=== PATIENT | male | born 1935 | race Caucasian/White ===

== ENCOUNTER 2021-04-25 18:50 | Emergency (ER) | payer BC, SELFPAY ==
[2021-04-25 19:33] VITALS: BP 194/114; PULSE 91; RESP 18; TEMP 36.9; O2SAT 93; BMI 34.4
--- NOTE | 2021-04-25 22:17 | CTR_ITS ---
PROCEDURE INFORMATION: Exam: CT Abdomen And Pelvis Without Contrast Exam date and time: 04/25/2021 10:17 PM Age: 85 years old Clinical indication: Abdominal pain; Patient HX: C/O rectal pain and bleeding w constipation and urinary difficulties; Additional info: Constipation x 1 week, difficulty urinating TECHNIQUE: Imaging protocol: Computed tomography of the abdomen and pelvis without contrast. Radiation optimization: All CT scans at this facility use at least one of these dose optimization techniques: automated exposure control; mA and/or kV adjustment per patient size (includes targeted exams where dose is matched to clinical indication); or iterative reconstruction. COMPARISON: No relevant prior studies available. RADIATION DOSE METRICS: Total DLP (mGy-cm): 1857.51 FINDINGS: Liver: Normal. No mass. Gallbladder and bile ducts: Normal. No calcified stones. No ductal dilation. Pancreas: Normal. No ductal dilation. Spleen: Normal. No splenomegaly. Adrenal glands: Normal. No mass. Kidneys and ureters: Strandy opacities are seen in the perinephric fascia bilaterally most probably representing chronic scarring. There are multiple small bilateral renal cysts present. The largest simple appearing cysts cysts seen on the left measures 1.7 cm. There are multiple I so dense and mildly hyperdense cystic lesions seen within the left kidney, the largest of these measures approximately 12 mm. On the right, there are multiple simple appearing cysts present as well, the largest seen medially measuring 1.9 cm. Again, there are small isodense and mildly hyperdense cystic masses present, the largest measuring approximately 11 mm in diameter. Stomach and bowel: Diverticula are present on the descending and sigmoid colon. There are no inflammatory changes seen to suggest diverticulitis. Appendix: The appendix is visualized and is normal in configuration. Intraperitoneal space: Unremarkable. No free air. No significant fluid collection. Vasculature: Calcifications are seen within the coronary arteries. Calcifications are present within the thoracic and abdominal aorta, iliac arteries and femoral arteries bilaterally and within branches of the celiac trunk. Lymph nodes: There are multiple mediastinal and hilar calcified lymph nodes seen. Urinary bladder: Unremarkable as visualized. Reproductive: Unremarkable as visualized. Bones/joints: There is a diffuse loss of disc height seen within the thoracolumbar spine with vacuum disc phenomenon seen L2-S1. Soft tissues: See Kidneys and ureters finding. Other findings: There are tiny partially calcified nodularities present within the hemithoraces bilaterally compatible with granulomas. CT/CT abdomen pelvis wo con [id number] IMPRESSION: 1. Multiple bilateral benign renal cysts. Several benign hemorrhagic cysts are seen bilaterally. The largest cyst on the left measures 1.7 cm, the largest cyst on the right measures 1.9 cm. No further workup is needed. 2. Diverticulosis of the descending and sigmoid colon 3. Evidence of prior granulomatous exposure with scattered tiny calcified pulmonary granulomas and calcified mediastinal and hilar lymph nodes. COMMENTS: Consistent with the [employer]'s Incidental Findings Committee white paper (J Am Gunnar Radiol 2018): Any incidental renal lesion less than 1 cm or classified as too small to characterize, or any incidental cystic renal lesion characterized as simple-appearing, is likely benign. No follow-up imaging is recommended for these lesions per consensus recommendations based on imaging criteria. Radiation Dose CTDIVOL = (mGy): DLP = 1857.51 (mGy-cm)
[2021-04-25 22:40] VITALS: BP 142/97; PULSE 80; RESP 16; O2SAT 96
[2021-04-25 22:48] LABS: Basophils # 0.1 10^3/uL (0.0-0.1); Basophils % 0.9 %; Eosinophils # 0.3 10^3/uL (0.0-0.8); Hematocrit 47.7 % (42.0-52.0); Hemoglobin 14.5 g/dL (11.7-16.6); Lymphocytes # 1.7 10^3/uL (0.8-4.8); Lymphocytes % 13.3 %; Mean Corpuscular HGB Conc 30.4 g/dL (30.0-36.0); Mean Corpuscular Hemoglobin 29.8 pg (28.0-34.0); Mean Corpuscular Volume 97.9 fL (80-94); Mean Platelet Volume 11.5 fL (7.4-10.4); Monocytes # 1.9 10^3/uL (0.2-0.9); Monocytes % 14.8 %; Neutrophils # 8.73 10^3/uL (1.8-7.7); Neutrophils % 68.1 %; Nucleated Red Blood Cells % 0 %; Platelet Count 263 10^3/cmm (130-400); Red Blood Count 4.87 10^6/uL (4.1-5.3); Red Cell Distribution Width 13.5 % (12.1-15.1); White Blood Count 12.8 10^3/uL (4.0-10.0)
[2021-04-25 23:19] LABS: Add Urine Microscopic? YES; Bilirubin Urine Neg (Negative); Blood Urine 3+ (Negative); Glucose Urine UA 1+ (Normal); Ketones Urine Negative (Negative); Leukocyte Esterase Urine 2+ (Negative); Nitrate Urine Negative (Negative); Protein Urine 1+ (Negative); Specific Gravity, Urine 1.025 (1.005-1.030); Urine Appearance Clear (CLEAR); Urine Color Yellow (Yellow); Urobilinogen Urine 1 mg/dL (Negative); pH Urine 5 (5-7)
[2021-04-25 23:21] LABS: Alanine Aminotransferase 10 U/L (0-41); Albumin Level 3.4 g/dL (3.5-5.2); Alkaline Phosphatase 57 IU/L (40-130); Anion Gap 14.2 (5-19); Aspartate Amino Transferase 16 U/L (0-40); Blood Urea Nitrogen 16 mg/dL (8-23); C Reactive Protein 50.5 mg/L (0.0-4.9); Calcium 9.5 mg/dL (8.5-10.5); Carbon Dioxide 25 mmol/L (22-29); Chloride 104 mmol/L (98-107); Globulin 2.4 g/dL (1.3-4.6); Glucose 155 mg/dL (65-115); Osmolality Calculated 292 mOsm/kg (285-295); Potassium 4.2 mmol/L (3.5-5.1); Sodium 139 mmol/L (136-145); Total Bilirubin 0.2 mg/dL (0.15-1.2); Total Protein 5.8 g/dL (6.6-8.7)
[2021-04-25 23:25] LABS: Add Urine Culture? Yes; Bacteria Urine 1+ /hpf; Hyaline Casts Urine 0-4 /lpf; Mucus Urine 1+ /hpf; WBC Urine 15-25 /hpf (0-5)
--- NOTE | 2021-04-26 00:11 | ED_ITS ---
HPI - General Adult General: Chief complaint: General Medical Stated complaint: Hemmroids Time Seen by Provider: 04/25/21 21:38 Source: patient and family () Mode of arrival: ambulatory Limitations: no limitations History of Present Illness: HPI narrative: This pleasant 85-year-old gentleman presents to the emergency department because he thinks he has trouble with his hemorrhoids. He states that he normally takes MiraLAX every day so he can have regular bowel movements but has not had a proper bowel movement in the 1 week. He was able to pass tiny bowel movement earlier today. But his last normal was 1 week ago. He also has been having difficulty urinating and only urinates about 2 teaspoonfuls every time he urinates. He denies any fever or nausea. He denies abdominal distention. He is here to be evaluated and to see what needs to be done. Onset (ago): week(s) (1) Severity: moderate Associated symptoms: Deny chest pain, confusion, cough, diaphoresis, decreased appetite, dyspnea, fevers/chills, headache(s), malaise, nausea, rash, palpitatio ns, seizures, short of breath, syncope, vomiting or weakness Treatments prior to arrival: none Review of Systems General: Reports: 10 or more systems reviewed and unremarkable except in HPI and below Const: Denies: malaise or diaphoresis Card: Denies: chest pain, palpitations or syncope Resp: Denies: dyspnea GI: Denies: nausea or vomiting Skin/Breast: Denies: rash Neuro: Denies: headache(s) or confusion Physical Exam Const: COMMON NORMALS: no acute distress, average body habitus, patient oriented x3, no limitations, healthy appearing, alert and well nourished Neck/C-Spine: COMMON NORMALS: no JVD Resp: COMMON NORMALS: normal respiratory effort, No retractions, No use of accessory muscles, clear to auscultation bilaterally and percussion normal AUSCULTATION: clear to auscultation bilaterally PERCUSSION: percussion normal Cardio: COMMON NORMALS: no JVD, regular rate, regular rhythm, S1 normal heart sound present, S2 normal heart sound present, No gallops present (Cardio), No clicks present (Cardio), No murmurs present (Cardio), No rub (Cardio) and Peripheral pulses 2+ throughout RATE: regular rate RHYTHM: regular rhythm HEART SOUNDS: S1 normal heart sound present and S2 normal heart sound present PERIPHERAL PULSES: Peripheral pulses 2+ throughout GI: COMMON NORMALS: Normal to inspection, nondistended, normoactive bowel sounds present, Soft to palpation, non-tender, No hepatosplenomegaly present, no masses and no bruits AUSCULTATION: Yes normoactive bowel sounds PALPATION: Yes Soft to palpation and Yes No hepatosplenomegaly present RECTAL EXAM: Yes normal sphincter tone, Yes prostate abnormal enlarged; nontender, No hem orrhoids, No Rectal prolapse, No Lesions present (GI), No fecal impaction, No Anal fissure(s) present and Yes other (liquid stool smeared his anus and my gloved finger) Extremity: COMMON NORMALS: normal to inspection, full ROM, capillary refill normal, no calf tenderness and no pedal edema Neuro: COMMON NORMALS: patient oriented x3 SENSORIUM/ORIENTATION: Yes alert Course Reevaluation(s): Reevaluation #1: Discussed his lab and imaging findings with him. Explained no acute findings on CT scan and no obvious constipation or bowel obstruction. He drained about 400 mL of urine into his urinary bag after a Edmondson catheter was placed in. He has some urinary retention and this may be responsible for the sensations that he was feeling. Since nothing acute was found we will discharge him but will leave the Edmondson catheter in place and he is to follow-up with a urologist for further evaluation and management. Patient voiced understanding and is in agreement with the plan Time: 00:12 Vital Signs: Vital signs: Vital Signs Temperature 98.5 F 04/26/21 00:26 Pulse Rate 75 04/26/21 00:26 Respiratory Rate 16 04/26/21 00:26 Blood Pressure 187/82 04/26/21 00:26 Pulse Oximetry 95 04/26/21 00:26 MDM - General Adult MDM Narrative: Medical decision making narrative: 85-year-old male who presents to the emergency department with difficulty urinating and constipation. Evaluation in the ED shows that he is in urinary retention but no obvious constipation. Rectal examination was unremarkable and CT scan was negative for acute findings in his abdomen and pelvis. A Edmondson catheter was placed and he was sent home with a Edmondson catheter in situ and he will be followed by urology on an outpatient basis. An outpatient referral was made and sent to [facility]. Medical Records: Attestation: I reviewed the patient's medical records. Lab Data: Attestation: I reviewed the patient's lab results. Labs: Lab Results 04/25/21 04/25/21 04/25/21 Range/Units 22:41 22:41 23:06 WBC 12.8 H (4.0-10.0) 10^3/ uL RBC 4.87 (4.1-5.3) 10^6/u L Hgb 14.5 (11.7-16.6) g/dL Hct 47.7 (42.0-52.0) % MCV 97.9 H (80-94) fL MCH 29.8 (28.0-34.0) pg MCHC 30.4 (30.0-36.0) g/dL RDW 13.5 (12.1-15.1) % Plt Count 263 (130-400) 10^3/c mm MPV 11.5 H (7.4-10.4) fL Neut % (Auto) 68.1 % Lymph % (Auto) 13.3 % [place] % (Auto) 14.8 % Eos % (Auto) 2.0 % Baso % (Auto) 0.9 % Neut # (Auto) 8.73 H (1.8-7.7) 10^3/u L Lymph # (Auto) 1.7 (0.8-4.8) 10^3/u L [place] # (Auto) 1.9 H (0.2-0.9) 10^3/u L Eos # (Auto) 0.3 (0.0-0.8) 10^3/u L Baso # (Auto) 0.1 (0.0-0.1) 10^3/u L Nucleated RBC % (a uto) 0 % Nucleated RBCs # 0.0 /100WBC Sodium 139 (136-145) mmol/L Potassium 4.2 (3.5-5.1) mmol/L Chloride 104 (98-107) mmol/L Carbon Dioxide 25 (22-29) mmol/L Anion Gap 14.2 (5-19) BUN 16 (8-23) mg/dL Creatinine 1.0 (0.7-1.2) mg/dL GFR Calculation Not Reportable Glucose 155 H (65-115) mg/dL Calculated Osmolal ity 292 (285-295) mOsm/k g Calcium 9.5 (8.5-10.5) mg/dL Total Bilirubin 0.2 (0.15-1.2) mg/dL AST 16 (0-40) U/L ALT 10 (0-41) U/L Alkaline Phosphata se 57 (40-130) IU/L C-Reactive Protein 50.5 H (0.0-4.9) mg/L Total Protein 5.8 L (6.6-8.7) g/dL Albumin 3.4 L (3.5-5.2) g/dL Globulin 2.4 (1.3-4.6) g/dL Urine Color Yellow (Yellow) Urine Appearance Clear (CLEAR) Urine pH 5 (5-7) Ur Specific Gravit y 1.025 (1.005-1.030) Urine Protein 1+ H (Negative) Urine Glucose (UA) 1+ (Normal) Urine Ketones Negative (Negative) Urine Blood 3+ H (Negative) Urine Nitrate Negative (Negative) Urine Bilirubin Neg (Negative) Urine Urobilinogen 1 H (Negative) mg/dL Ur Leukocyte Alicia ase 2+ H (Negative) Urine RBC 10-15 H (0-2) /hpf Urine WBC 15-25 H (0-5) /hpf Ur Squamous Epith Cells 5-10 H (0-5) /hpf Amorphous Sediment Not Reportable Urine Bacteria 1+ H (NONE) /hpf Hyaline Casts 0-4 H /lpf Urine Mucus 1+ /hpf Imaging Data^: CT Abd/Pel: Attestation: I personally reviewed and interpreted this imaging study as follows: Radiologist's impression: [address] [id number] Scan ReportSigned Patient: Brandi Harris #: [id number]: [id number]#:[id number]/Sex: 85 / MADM Date: 04/25/21Loc: ERRoom/Bed:Attending Dr: Ordering Provider/Ordering MD: Kennedi Mccabe MD, [facility] [place] Date of Service: 04/25/21 Procedure(s): CT abdomen pelvis wo con [id number] Accession Number(s): [id number] Report Number: [id number] PROCEDURE INFORMATION: Exam: CT Abdomen And Pelvis Without Contrast Exam date and time: 04/25/2021 10:17 PM Age: 85 years old Clinical indication: Abdominal pain; Patient HX: C/O rectal pain and bleeding w constipation and urinary difficulties; Additional info: Constipation x 1 week, difficulty urinating TECHNIQUE: Imaging protocol: Computed tomography of the abdomen and pelvis without contrast. Radiation optimization: All CT scans at this facility use at least one of these dose optimization techniques: automated exposure control; mA and/or kV adjustment per patient size (includes targeted exams where dose is matched to clinical indication); or iterative reconstruction. COMPARISON: No relevant prior studies available. RADIATION DOSE METRICS: Total DLP (mGy-cm): 1857.51 FINDINGS: Liver: Normal. No mass. Gallbladder and bile ducts: Normal. No calcified stones. No ductal dilation. Pancreas: Normal. No ductal dilation. Spleen: Normal. No splenomegaly. Adrenal glands: Normal. No mass. Kidneys and ureters: Strandy opacities are seen in the perinephric fascia bilaterally most probably representing chronic scarring. There are multiple small bilateral renal cysts present. The largest simple appearing cysts cysts seen on the left measures 1.7 cm. There are multiple I so dense and mildly hyperdense cystic lesions seen within the left kidney, the largest of these measures approximately 12 mm. On the right, there are multiple simple appearing cysts present as well, the largest seen medially measuring 1.9 cm. Again, there are small isodense and mildly hyperdense cystic masses present, the largest measuring approximately 11 mm in diameter. Stomach and bowel: Diverticula are present on the descending and sigmoid colon. There are no inflammatory changes seen to suggest diverticulitis. Appendix: The appendix is visualized and is normal in configuration. Intraperitoneal space: Unremarkable. No free air. No significant fluid collection. Vasculature: Calcifications are seen within the coronary arteries. Calcifications are present within the thoracic and abdominal aorta, iliac arteries and femoral arteries bilaterally and within branches of the celiac trunk. Lymph nodes: There are multiple mediastinal and hilar calcified lymph nodes seen. Urinary bladder: Unremarkable as visualized. Reproductive: Unremarkable as visualized. Bones/joints: There is a diffuse loss of disc height seen within the thoracolumbar spine with vacuum disc phenomenon seen L2-S1. Soft tissues: See Kidneys and ureters finding. Other findings: There are tiny partially calcified nodularities present within the hemithoraces bilaterally compatible with granulomas. CT/CT abdomen pelvis wo con [id number] IMPRESSION: 1. Multiple bilateral benign renal cysts. Several benign hemorrhagic cysts are seen bilaterally. The largest cyst on the left measures 1.7 cm, the largest cyst on the right measures 1.9 cm. No further workup is needed. 2. Diverticulosis of the descending and sigmoid colon 3. Evidence of prior granulomatous exposure with scattered tiny calcified pulmonary granulomas and calcified mediastinal and hilar lymph nodes. COMMENTS: Consistent with the [employer]'s Incidental Findings Committee white paper (J Am Gunnar Radiol 2018): Any incidental renal lesion less than 1 cm or classified as too small to characterize, or any incidental cystic renal lesion characterized as simple-appearing, is likely benign. No follow-up imaging is recommended for these lesions per consensus recommendations based on imaging criteria. Radiation Dose CTDIVOL = (mGy): DLP = 1857.51 (mGy-cm) Dictated By:Carrington Martinez MDSigned By:Carrington Martinez MDSigned Date/Time:04/25/212337DD/ 34 Discharge Plan Discharge Patient Disposition: Home Clinical Impression: Acute urinary retention UTI (urinary tract infection) Qualifiers: Urinary tract infection type: acute cystitis Hematuria presence: without hemat uria Qualified Code(s): N30.00 - Acute cystitis without hematuria Condition: Stable Prescriptions: New Augmentin 500-125 mg tablet 1 tab PO BID Qty: 14 RF: 0 Discharge Orders: Discharge ED (Routine); Ordered 04/26/21 Ordered By: Kennedi Mccabe Discharge Diet: Usual diet Discharge Activity: Increase activity as tolerated Patient Instructions: Urinary Retention in Men (ED), Urinary Tract Infection in Men (ED), Edmondson Catheter Placement and Care (ED) Activity Restrictions/Additional Instructions: Return for any new or worsening symptoms. Follow-up with your primary care provider within 3 days. Take the antibiotic as prescribed. Drink plenty of water to keep well-hydrated. You will be contacted by case management to schedule an appointment with the urologist for further evaluation of your difficulty urinating. Coding Level of Care Code ED Billing And Accounting Staff Assistant for Eduard Jama
[2021-04-26] MEDS: amoxicillin-clav 500-125 mg Tablet 1 TAB PO (00:23)
[2021-04-26 00:26] VITALS: BP 187/82; PULSE 75; RESP 16; TEMP 36.9; O2SAT 95
--- NOTE | 2021-04-27 09:20 | PC.SOCIAL ---
Called Urology spoke to Kate regarding ED referral by Dr Mccabe for urinary retention. She will review and call patient with appointment.
--- NOTE | 2021-05-28 07:57 | DCPLANNER ---
Patient had a follow up appointment scheduled with Dr. Ackerman - patient did attend the appointment.
== END 2021-04-26 00:32 | disposition home or self-care (01) ==
PROVIDERS: Emergency Provider Family Medicine
DX: N30.00 Acute cystitis without hematuria (principal); R33.9 Retention of urine, unspecified
CPT/HCPCS: 51702; 51798; 74176; 80053; 81001; 85025; 86140; 87086; 99283

== ENCOUNTER 2021-05-02 08:44 | Emergency (ER) | payer BC, SELFPAY ==
[2021-05-02 09:02] VITALS: BP 140/112; PULSE 105; RESP 18; TEMP 36.7; O2SAT 94; BMI 34.0
--- NOTE | 2021-05-02 09:04 | ED_ITS ---
HPI - General Adult General: Chief complaint: Urogenital-Male Stated complaint: CATH PAIN Time Seen by Provider: 05/02/21 08:57 Source: patient and family Mode of arrival: ambulatory Limitations: no limitations History of Present Illness: HPI narrative: Patient is here for evaluation of pain to the penis from his catheter. He states the anchor to the catheter on his right thigh has fallen off and the catheter is pulling on his penis. He denies any abdominal pain. Denies any fever. He states he just took his blood pressure medication losartan just prior to arrival. His recheck blood pressure is 140/112. Patient has agreed to keep the catheter at least through the weekend. He has an appoint with urology in approximately 1 month. I encouraged patient follow-up with urology for cancellation for evaluation of catheter problem. complaint: Catheter check Onset (ago): day(s) (6) Location: genitals (Penis) Radiation: non-radiation Severity: mild Quality: sharp Pain Consistency: intermittent Relieving factors: other (Stabilization of the catheter) Exacerbating factors: other (Moving the catheter) Associated symptoms: Reports no associated symptoms; Deny chest pain, dyspnea or rash Review of Systems Const: Denies: fever(s) Card: Denies: chest pain Resp: Denies: dyspnea GI: Denies: abdominal pain : Reports: other (Pain at the end of the penis from his catheter.) Skin/Breast: Denies: rash, pruritus or erythema Physical Exam Const: COMMON NORMALS: no acute distress, patient oriented x3, alert and well nourished HENMT: COMMON NORMALS: normocephalic HEAD & SCALP: normocephalic Chest: COMMONS NORMALS: normal inspection of the chest Resp: COMMON NORMALS: normal respiratory effort GI: COMMON NORMALS: Normal to inspection, nondistended, normoactive bowel sounds present, Soft to palpation and non-tender PALPATION: Yes Soft to palpation : BLADDER/KIDNEY EXAM: Yes catheter in place Catheter type (Male): urethral and Yes bladder normal to palpation OTHER: Catheter bag draining clear yellow urine. Edelstein to right thigh has fallen off. Neuro: COMMON NORMALS: patient oriented x3 and moves all extremities SENSORIUM/ORIENTATION: Yes alert Psych: COMMON NORMALS: mental status grossly normal and Normal thought process present THOUGHT PROCESS: Normal thought process present Course Vital Signs: Vital signs: Vital Signs Temperature 98.0 F 05/02/21 09:02 Pulse Rate 105 H 05/02/21 09:02 Respiratory Rate 18 05/02/21 09:02 Blood Pressure 140/112 05/02/21 09:02 Pulse Oximetry 94 05/02/21 09:02 MDM - General Adult 2 MDM Narrative: Medical decision making narrative: Patient has agreed to continue wearing the catheter. We will reanchor the catheter to his leg. I encouraged patient follow-up with urology this coming week after the holiday weekend. Examination of penis shows candidiasis. Patient states he was prescribed antifungal cream last week but never used it. I encouraged him to place it over the distal penis 2-3 times a day as directed. Discharge Plan Discharge Patient Disposition: Home Clinical Impression: Candidiasis of penis Edmondson catheter problem Qualifiers: Encounter type: initial encounter Qualified Code(s): T83.9XXA - Unspecified complication of genitourinary prosthetic device, implant and graft, initial encounter Condition: Stable Prescriptions: No Action Augmentin 500-125 mg tablet 1 tab PO BID Qty: 14 RF: 0 Discharge Orders: Discharge ED (Routine); Ordered 05/02/21 Ordered By: Mathieu Boyd Referrals: Ulices Ackerman MD [Physician] - (Follow-up with urology this coming week if possible.) Discharge Activity: Increase activity as tolerated Patient Instructions: Edmondson Catheter Care, Opioid Safety Activity Restrictions/Additional Instructions: Drink plenty of fluids. Follow-up with urology soon as possible for evaluation of Edmondson catheter. Continue antifungal cream as directed. Coding Level of Care Code ED Telecommunications Technician for Eduard Fwvrea Exam Comprehensive
[2021-05-02 09:07] VITALS: BP 157/88; PULSE 65; RESP 18; O2SAT 93
[2021-05-02 09:25] VITALS: BP 157/88; PULSE 67; RESP 18; TEMP 37.1; O2SAT 94
== END 2021-05-02 09:27 | disposition home or self-care (01) ==
PROVIDERS: Emergency Provider Family Medicine
DX: B37.49 Other urogenital candidiasis (principal); T83.9XXA Unspecified complication of genitourinary prosthetic device, implant and graft, initial encounter
CPT/HCPCS: 99282

== ENCOUNTER 2023-03-08 08:23 | Outpatient (CLI) | payer BC, SELFPAY ==
--- NOTE | 2023-03-08 08:34 | CT_ITS ---
WS: [id number] CT HEAD TECHNIQUE: Noncontrast CT of the head obtained from the skullbase to the vertex. CLINICAL INFORMATION: TIA COMPARISON: None. DLP: 1126.[address] scans at [facility] use at least one of these dose optimization techniques: automated e xposure control; mA and/or kV adjustment per patient size (includes targeted exams where dose is matc hed to clinical indication); or iterative reconstruction. FINDINGS: No evidence of intracranial hemorrhage or mass effect. Ventricular system and basal cisterns are garcia nt. Moderate small vessel changes with moderate parenchymal volume loss. 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 Low-attenuation change in the LEFT hemipons consistent with subacute versu s chronic infarct. This can be further evaluated MRI. Vascular calcification. Paranasal sinuses and mastoid air cells are well aerated. .Normal visualized soft tissues. CT/CT head wo con* [id number] IMPRESSION: 1. No evidence of intracranial hemorrhage or mass effect. 2. Moderate small vessel changes. Moderate parenchymal volume loss. 3. Subacute or chronic infarct in the LEFT hemipons. This can be further evalu ated with MRI. 4. 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 5. Intracranial vascular calcification.
== END 2023-03-08 08:24 | disposition home or self-care (01) ==
LOC: RAD 08:29
PROVIDERS: PCP Nurse Practitioner Family; Visit Provider Nurse Practitioner Family
DX: G45.9 Transient cerebral ischemic attack, unspecified (principal)
CPT/HCPCS: 70450

== ENCOUNTER 2023-03-16 09:46 | Outpatient (CLI) | payer BC, MEDICARE, SELFPAY ==
--- NOTE | 2023-03-16 10:10 | USCV_ITS ---
Jared Harris Age: 87 Gender: M : 1935 Exam Date: 03/16/2023 10:53 Ordering Phys: Ros Bello PRESIDENT AND CHIEF COMMERCIAL OFFICER PRESIDENT AND CHIEF COMMERCIAL OFFICER Technologist: Joe Galeano Exam Location: [facility] [place] Indication: TIA BP: 140 / 84 HR: 74 Rhythm: Sinus Technical Quality: Adequate MEASUREMENTS (Male / Female) Normal Values 2D ECHO LVOT Diameter 2.0 cm LV Ejection Fraction MOD 2C 64.3 % LV Ejection Fraction 2C AL 65.0 % LA Diameter 4.0 cm LA Width 3.2 cm LA Height 3.2 cm RA Width 2.6 cm RA Height 3.0 cm Aorta at Sinotubular Diameter 2.7 cm IVC Diameter 1.9 cm M-MODE Aortic Annulus Diameter 3.5 cm LA Ao Ratio MM 1.2 MV E Point Septal Separation 0.6 cm DOPPLER AV Peak Velocity 277.0 cm/s LVOT Peak Velocity 106.0 cm/s AV Area Cont Eq vti 1.3 cm squared AV Area Cont Eq pk 1.3 cm squared MV Peak Velocity 94.0 cm/s MV Area PHT 4.2 cm squared Mitral E to A Ratio 0.5 MV E' Velocity 26.5 cm/s Mitral E to MV E' Ratio 6.4 Mitral E to LV E' Lateral Ratio 5.8 Mitral E to LV E' Septal Ratio 7.4 TR Peak Velocity 248.9 cm/s TR Peak Gradient 24.8 mmHg TR Mean Velocity 191.2 cm/s TR Mean Gradient 15.6 mmHg TR Velocity Time Integral 60.9 cm Right Atrial Pressure 3.0 mmHg Pulmonary Artery Systolic Pressu 27.8 mmHg PV Peak Velocity 100.7 cm/s RV Acceleration Time 0.1 s RV Ejection Time 0.3 s RV AcT/ET 0.4 FINDINGS Left Ventricle Normal left ventricular size and systolic function, EF 63 %. Mild left ventricular hypertrophy. No regional wall motion abnormalities. Grade I/IV diastolic dysfunction (abnormal relaxation filling pattern), normal to mildly elevated filling pressures. Right Ventricle The right ventricle is normal in size and function. Right Atrium The right atrium is normal in size. Left Atrium The left atrium is normal in size. Mitral Valve Trace mitral valve regurgitation. Aortic Valve Moderate aortic valve stenosis, mean gradient 15.7 mmHg, SULEMA 1.3 cm squared. Trace to mild aortic valve regurgitation. Tricuspid Valve Trace tricuspid valve regurgitation. Pulmonic Valve Pulmonic valve not well visualized. Pericardium Normal pericardium without effusion. Aorta Normal ascending aorta dimension. IVC Normal inferior vena cava. CONCLUSIONS Normal left ventricular size and systolic function, EF 63 %. Mild left ventricular hypertrophy. No regional wall motion abnormalities. Grade I/IV diastolic dysfunction (abnormal relaxation filling pattern), normal to mildly elevated filling pressures. Moderate aortic valve stenosis, mean gradient 15.7 mmHg, SULEMA 1.3 cm squared. Trace to mild aortic valve regurgitation. Trace mitral valve regurgitation. Trace tricuspid valve regurgitation. Estimated pulmonary artery peak systolic pressure 28 mmHg There are no intracardiac masses. Technically somewhat difficult study because of the poor ultrasonic window Dr Constantine Coleman MD FACC (Electronically Signed) Final Date: 18 Mar 2023 12:11 S
--- NOTE | 2023-03-16 10:10 | USCV_ITS ---
Jared Harris Age: 87 Gender: M : 1935 Exam Date: 03/16/2023 10:24 Ordering Phys: Ros Bello BLOCK STACKER BLOCK STACKER Technologist: JOSELITO Exam Location: [facility] [place] Indication: TIA Risk Factors: Previous Vascular Surgery: Right Brachial BP: / Left Brachial BP: / Right Left Velocity (cm/s) Spectral Plaque Velocity (cm/s) Spectral Plaque Syst/Diast Broadening Syst/Diast Broadening 66.20/ 6.50 Prox CCA 68.90 / 11.60 52.20/ 7.90 Mid CCA 81.70 / 13.50 44.30/ 11.90 Distal CCA 65.30 / 12.40 58.10/ 15.20 Prox ICA 53.60 / 17.10 52.20/ 15.90 Mid ICA 50.50 / 12.40 84.70/ 14.00 Distal ICA 52.00 / 15.50 85.20 ECA 66.80 1.28 ICA/CCA 0.66 Antegrade Vertebral Antegrade 24.60/ 6.40 cm/s 26.30/ 9.90 cm/s Tri Subclavian Tri 127.9 99.70 0 FINDINGS Mild to moderate dense plaques at the right bifurcation and proximal internal carotid artery Mild to moderate dense plaques at the left bifurcation and proximal internal carotid artery Antegrade flow in the vertebral arteries bilaterally. Normal Doppler flow velocities in the subclavian arteries bilaterally. CONCLUSIONS Mild to moderate dense plaques at the bifurcations and proximal internal carotid arteries bilaterally, suggesting less than 50% stenosis. No significant stenosis in the vertebral, subclavian and external carotid arteries, based on the above findings Dr Constantine Coleman MD FAC (Electronically Signed) Final Date: 18 Mar 2023 11:53 S
== END 2023-03-16 09:47 | disposition home or self-care (01) ==
LOC: RAD 09:59
PROVIDERS: PCP Nurse Practitioner Family; Visit Provider Nurse Practitioner Family
DX: G45.9 Transient cerebral ischemic attack, unspecified (principal); I35.0 Nonrheumatic aortic (valve) stenosis
CPT/HCPCS: 93306; 93880

== ENCOUNTER → 2023-04-19 09:42 | Outpatient (BNVA) | payer BC, SELFPAY | PROVIDERS: PCP Nurse Practitioner Family; Visit Provider Internal Medicine Cardiovascular Disease | DX: R07.9 Chest pain, unspecified (principal); I45.10 Unspecified right bundle-branch block; I35.0 Nonrheumatic aortic (valve) stenosis; I10 Essential (primary) hypertension; E11.9 Type 2 diabetes mellitus without complications; Z86.73 Personal history of transient ischemic attack (TIA), and cerebral infarction without residual deficits; I44.0 Atrioventricular block, first degree; Z87.891 Personal history of nicotine dependence | CPT/HCPCS: 93005 ==

== ENCOUNTER 2023-07-25 09:20 | Emergency (ER) | payer BC, SELFPAY ==
[2023-07-25 10:00] VITALS: BP 151/85; PULSE 88; RESP 16; TEMP 36.4; O2SAT 96; BMI 34.2
--- NOTE | 2023-07-25 11:23 | W.ED.GENADLT ---
HPI - General Adult General: Chief complaint: General Medical Stated complaint: rectal pain Time Seen by Provider: 07/25/23 10:50 Source: patient and family Mode of arrival: ambulatory History of Present Illness: 87-year-old male presents emergency room complaining of rectal pain and anal leakage. He has not had any back pain no radicular leg pain. Over the l 4 to 7 days she has had increasing rectal pain he was seen last week in the office and given a topical cream for hemorrhoid. He has not noticed any bright red blood per rectum. He does take MiraLAX every day and is continuing to do so. No fevers sweats or chills. No abdominal pain at this time. is also frustrated as she is having more difficult time with him. She notes that during the day he seems fine but in the evening he gets more more confused and disoriented. He is awake and alert with no focal deficits at this time and no slurring of his speech or vision changes. Onset (ago): day(s) (-) Severity: moderate Quality: sharp Pain Consistency: intermittent Relieving factors: none Associated symptoms: Deny chest pain, confusion, cough, diaphoresis, decreased appetite, dyspnea, fevers/chills, headache(s), malaise, nausea, rash, palpitations, seizures, short of breath, syncope, vomiting or weakness Treatments prior to arrival: other (Topical hemorrhoid cream) Review of Systems Const: Denies: fever(s), chills, malaise or diaphoresis Card: Denies: chest pain, palpitations or syncope Resp: Denies: dyspnea GI: Denies: abdominal pain, nausea, vomiting, hematochezia or melena : Denies: flank pain, dysuria, urinary frequency or urinary urgency Skin/Breast: Denies: rash Neuro: Denies: headache(s) or confusion PFSH ED PFSH: Medical History Bilateral renal cysts Diabetes HTN (hypertension) TIA (transient ischemic attack) Urinary retention Surgical History 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 S/P tonsillectomy Family History Brother , COLON CANCER/BLOOD CANCER Cancer Father , AT AGE 66 HEART ATTACK CAD (coronary artery disease) Myocardial infarction Mother , AT AGE 88 COLON CANCER Cancer Social History Smoking and tobacco status: former smoker Alcohol intake: never Marital status: Current occupational status: retired Physical Exam Const: GENERAL APPEARANCE: cooperative and comfortable ORIENTATION/CONSCIOUSNESS: Yes awake HENMT: COMMON NORMALS: normocephalic, atraumatic and hearing grossly normal bilaterally HEAD & SCALP: normocephalic and atraumatic Resp: COMMON NORMALS: normal respiratory effort, No retractions, No use of accessory muscles and clear to auscultation bilaterally AUSCULTATION: clear to auscultation bilaterally Cardio: COMMON NORMALS: regular rate, regular rhythm and No murmurs present (Cardio) RATE: regular rate RHYTHM: regular rhythm GI: COMMON NORMALS: Soft to palpation and No hepatosplenomegaly present AUSCULTATION: Yes normoactive bowel sounds PALPATION: Yes Soft to palpation, No Tenderness to palpation present (GI), No Guarding due to palpation present (GI) and Yes No hepatosplenomegaly present OTHER: Poor rectal sphincter tone with some anal leakage noted. There is a moderately inflamed half prior at the 6 o'clock position in the rectum that is not thrombosed. No active bleeding or blood from rectum no rectal tears or palpable masses or nodules at the perineum. Extremity: COMMON NORMALS: normal to inspection, capillary refill normal, no clubbing, cyanosis or edema, no calf tenderness and no pedal edema Skin: COMMON NORMALS: no rashes or lesions noted GENERAL SKIN EXAM: no rashes or lesions noted Course Vital Signs: Vital signs: Vital Signs Temperature 97.5 F L 07/25/23 10:00 Pulse Rate 80 07/25/23 11:59 Respiratory Rate 18 07/25/23 11:59 Blood Pressure 142/76 07/25/23 11:59 Pulse Oximetry 91 07/25/23 11:59 Oxygen Delivery Me thod Room Air 07/25/23 11:59 MDM - General Adult Medical Decision Making Labs and imaging reviewed. On exam patient has poor rectal sphincter tone but it did not no saddle paresthesias. He has some anal leakage I suspect is from chronic use of the MiraLAX. No active bleeding hemorrhoids. Patient in no respiratory distress no signs of cauda equina at this point. Encourage patient to stop using MiraLAX and refer to general surgery for further evaluation of his chronic rectal pain. Medical Records I reviewed the patient's medical records. Lab Data I reviewed the patient's lab results. 07/25/23 11:30 07/25/23 11:30 Laboratory Results WBC 14.76 10^3/uL (3.29-11.43) H 07/25/23 11:30 RBC 5.72 10^6/uL (3.85-5.65) H 07/25/23 11:30 Hgb 16.90 g/dL (11.27-16.99) 07/25/23 11:30 Hct 50.5 % (37-53) 07/25/23 11:30 MCV 88.3 fl (82-101) 07/25/23 11:30 MCH 29.5 pg (27-33) 07/25/23 11:30 MCHC 33.5 g/dL (30-55) 07/25/23 11:30 RDW 13.1 % (12.1-15.1) 07/25/23 11:30 Plt Count 289 10^3/cmm (157-399) 07/25/23 11:30 MPV 11.8 fL (7.4-10.4) H 07/25/23 11:30 Neut % (Auto) 74.7 % 07/25/23 11:30 Lymph % (Auto) 10.8 % 07/25/23 11:30 [place] % (Auto) 12.5 % 07/25/23 11:30 Eos % (Auto) 0.9 % 07/25/23 11:30 Baso % (Auto) 0.5 % 07/25/23 11:30 Neut # (Auto) 11.00 10^3/uL (1.8-7.7) H 07/25/23 11:30 Lymph # (Auto) 1.6 10^3/uL (0.8-4.8) 07/25/23 11:30 [place] # (Auto) 1.9 10^3/uL (0.2-0.9) H 07/25/23 11:30 Eos # (Auto) 0.1 10^3/uL (0.0-0.8) 07/25/23 11:30 Baso # (Auto) 0.1 10^3/uL (0.0-0.1) 07/25/23 11:30 Nucleated RBC % (auto) 0 % 07/25/23 11:30 Nucleated RBCs # 0.0 /100WBC 07/25/23 11:30 Sodium 138 mmol/L (136-145) 07/25/23 11:30 Potassium 3.5 mmol/L (3.5-5.1) 07/25/23 11:30 Chloride 95 mmol/L (98-107) L 07/25/23 11:30 Carbon Dioxide 31 mmol/L (22-29) H 07/25/23 11:30 Anion Gap 15.5 (5-19) 07/25/23 11:30 BUN 18 mg/dL (8-23) 07/25/23 11:30 Creatinine 1.3 mg/dL (0.7-1.2) H 07/25/23 11:30 GFR Calculation Not Reportable 07/25/23 11:30 Glucose 188 mg/dL (65-115) H 07/25/23 11:30 Calculated Osmolality 293 mOsm/kg (285-295) 07/25/23 11:30 Calcium 10.1 mg/dL (8.5-10.5) 07/25/23 11:30 Total Bilirubin 0.5 mg/dL (0.15-1.2) 07/25/23 11:30 AST 14 U/L (0-40) 07/25/23 11:30 ALT 11 U/L (0-41) 07/25/23 11:30 Alkaline Phosphatase 74 U/L (40-130) 07/25/23 11:30 Total Protein 6.7 g/dL (6.6-8.7) 07/25/23 11:30 Albumin 3.3 g/dL (3.5-5.2) L 07/25/23 11:30 Globulin 3.4 g/dL (1.3-4.6) 07/25/23 11:30 No radiology studies performed this visit Discharge Plan Discharge Patient Disposition: Home Clinical Impression: Hemorrhoid, Fecal incontinence Condition: Stable Prescriptions: No Action losartan 100 mg tablet 100 mg PO QAM hydrochlorothiazide 25 mg tablet 25 mg PO QAM clopidogrel 75 mg tablet 75 mg PO DAILY Rx Instructions: ( states pt is suppose to be taking but out of refills ext shows last filled 03/04/23 90d/s) cetirizine [24Hour Allergy] 10 mg tablet 10 mg PO QAM aspirin 325 mg Tablet 162.5 mg PO QAM amlodipine 5 mg tablet 5 mg PO QAM Procto-Med HC 2.5 % cream with perineal applicator See Rx Instructions .ROUTE .COMPLEX Rx Instructions: APPLY A SMALL AMOUNT TO AFFECTED AREA THREE TIMES DAILY amoxicillin-pot clavulanate 875-125 mg tablet 1 tab PO BID Rx Instructions: for 7 days (rx filled 07/21/23) ketoconazole 2 % cream 1 applic topical DAILY PRN (Reason: unknown) Discharge Orders: Discharge ED (Routine); Ordered 07/25/23 Ordered By: Kiran Jensen Referrals: Ros Bello FNP [Primary Care Provider] - Discharge Diet: Usual diet Discharge Activity: Resume usual activity Patient Instructions: Hemorrhoids (ED), Opioid Safety, Pain Management Activity Restrictions/Additional Instructions: Continue hemorrhoid cream given to you in the office. Stop MiraLAX. hospice case manager like arrangements for follow-up with general surgery. Coding Level of Care Code ED Pipe And Boiler Covers Supervisor for Eduard Jama
--- NOTE | 2023-07-25 11:36 | PC.PHAR ---
pts verified pts medications-pts states the pt was taking care of his own medications but states he wasnt taking them pts states she started taking care of the pts medications-pts states the pt is suppose to be taking plavix 75mg daily states she is waiting for her refill request ext shows last filled 03/04/23 90d/s-pts states the pt is still taking hctz 25mg qam ext shows last filled 12/16/22 90d/s-pts states pt stop taking fenofibrate 145mg daily filled 01/28/23 90d/s-lovastatin 40mg hs -metformin 500mg bid filled 12/02/22 90d/s-metoprolol tartrate 25mg bid filled 10/19/22 90d/s-pts and jimmy states the pt just got a flu and shingles vaccine on 07/16/23-notes are made in the pharmacy comments
[2023-07-25 11:42] LABS: Basophils # 0.1 10^3/uL (0.0-0.1); Basophils % 0.5 %; Eosinophils # 0.1 10^3/uL (0.0-0.8); Eosinophils % 0.9 %; Hematocrit 50.5 % (37-53); Lymphocytes # 1.6 10^3/uL (0.8-4.8); Lymphocytes % 10.8 %; Mean Corpuscular HGB Conc 33.5 g/dL (30-55); Mean Corpuscular Hemoglobin 29.5 pg (27-33); Mean Corpuscular Volume 88.3 fl (82-101); Mean Platelet Volume 11.8 fL (7.4-10.4); Monocytes # 1.9 10^3/uL (0.2-0.9); Monocytes % 12.5 %; Neutrophils % 74.7 %; Nucleated Red Blood Cells % 0 %; Platelet Count 289 10^3/cmm (157-399); Red Blood Count 5.72 10^6/uL (3.85-5.65); Red Cell Distribution Width 13.1 % (12.1-15.1); White Blood Count 14.76 10^3/uL (3.29-11.43)
[2023-07-25 11:58] LABS: Alanine Aminotransferase 11 U/L (0-41); Albumin Level 3.3 g/dL (3.5-5.2); Alkaline Phosphatase 74 U/L (40-130); Anion Gap 15.5 (5-19); Aspartate Amino Transferase 14 U/L (0-40); Blood Urea Nitrogen 18 mg/dL (8-23); Calcium 10.1 mg/dL (8.5-10.5); Carbon Dioxide 31 mmol/L (22-29); Chloride 95 mmol/L (98-107); Globulin 3.4 g/dL (1.3-4.6); Glucose 188 mg/dL (65-115); Osmolality Calculated 293 mOsm/kg (285-295); Potassium 3.5 mmol/L (3.5-5.1); Sodium 138 mmol/L (136-145); Total Bilirubin 0.5 mg/dL (0.15-1.2); Total Protein 6.7 g/dL (6.6-8.7)
[2023-07-25 11:59] VITALS: BP 142/76; PULSE 80; RESP 18; O2SAT 91
--- NOTE | 2023-07-25 14:08 | PC.SOCIAL ---
General Surgery Referral Referral message sent to general surgery clinic at this time. Clinic to contact patient with appt date/time.
== END 2023-07-25 12:58 | disposition home or self-care (01) ==
PROVIDERS: Emergency Provider Family Medicine; PCP Nurse Practitioner Family
DX: K64.9 Unspecified hemorrhoids (principal); R15.9 Full incontinence of feces; Z79.02 Long term (current) use of antithrombotics/antiplatelets; Z79.82 Long term (current) use of aspirin; E11.9 Type 2 diabetes mellitus without complications; I10 Essential (primary) hypertension; Z86.73 Personal history of transient ischemic attack (TIA), and cerebral infarction without residual deficits; Z87.891 Personal history of nicotine dependence
CPT/HCPCS: 36415; 80053; 85025; 99283

== ENCOUNTER → 2023-07-27 14:12 | Outpatient (BNVA) | payer MEDICARE, BC, SELFPAY | PROVIDERS: PCP Nurse Practitioner Family; Visit Provider Surgery | DX: K92.1 Melena (principal); K62.89 Other specified diseases of anus and rectum | CPT/HCPCS: 99203 ==

== ENCOUNTER 2023-08-02 11:26 | Emergency (ER) | payer BC, SELFPAY ==
[2023-08-02 11:30] VITALS: BP 172/88; PULSE 93; TEMP 37.2; O2SAT 90; BMI 33.9
[2023-08-02 11:58] VITALS: BP 152/107; PULSE 90; RESP 16; O2SAT 91
--- NOTE | 2023-08-02 11:58 | PC.PHAR ---
pts verified pts medications
[2023-08-02 12:01] LABS: Basophils # 0.1 10^3/uL (0.0-0.1); Eosinophils # 0.2 10^3/uL (0.0-0.8); Eosinophils % 1.8 %; Hematocrit 48.7 % (37-53); Lymphocytes % 15.6 %; Mean Corpuscular HGB Conc 33.5 g/dL (30-55); Mean Corpuscular Hemoglobin 29.3 pg (27-33); Mean Corpuscular Volume 87.6 fl (82-101); Mean Platelet Volume 11.2 fL (7.4-10.4); Monocytes # 1.5 10^3/uL (0.2-0.9); Monocytes % 12.1 %; Neutrophils # 8.56 10^3/uL (1.8-7.7); Neutrophils % 68.4 %; Nucleated Red Blood Cells % 0 %; Platelet Count 306 10^3/cmm (157-399); Red Blood Count 5.56 10^6/uL (3.85-5.65); Red Cell Distribution Width 12.7 % (12.1-15.1); White Blood Count 12.52 10^3/uL (3.29-11.43)
[2023-08-02 12:12] LABS: INR 0.95 (0.8-1.2)
[2023-08-02 12:30] LABS: Alanine Aminotransferase 9 U/L (0-41); Albumin Level 3.1 g/dL (3.5-5.2); Alkaline Phosphatase 73 U/L (40-130); Anion Gap 15.6 (5-19); Aspartate Amino Transferase 11 U/L (0-40); Blood Urea Nitrogen 21 mg/dL (8-23); Calcium 9.8 mg/dL (8.5-10.5); Carbon Dioxide 26 mmol/L (22-29); Chloride 95 mmol/L (98-107); Globulin 3.6 g/dL (1.3-4.6); Glucose 231 mg/dL (65-115); Osmolality Calculated 286 mOsm/kg (285-295); Potassium 3.6 mmol/L (3.5-5.1); Sodium 133 mmol/L (136-145); Thyroid Stimulating Hormone 2.39 uIU/mL (0.27-4.20); Total Bilirubin 0.3 mg/dL (0.15-1.2); Total Protein 6.7 g/dL (6.6-8.7)
[2023-08-02 12:31] LABS: Acetaminophen < 5.0 ug/mL (10-30); Alcohol Level < 10 mg/dL (0-10); Salicylate < 0.3 mg/dL (3-10)
--- NOTE | 2023-08-02 14:07 | W.ED.PSYCHS ---
HPI - Psych General: Chief Complaint: Psychiatric Symptoms Stated Complaint: SI Time Seen by Provider: 08/02/23 11:27 History of Present Illness: 87-year-old male presents to the emergency department with statements that he has severe rectal pain due to his hemorrhoids. He states he said to his that he wants to take a gun and shoot himself in the head so that he will stop having this recurrent rectal pain. He states that he does have guns at his home and he is fine with ending his life as he feels like he is just getting along. 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 S/P tonsillectomy Family History Brother , COLON CANCER/BLOOD CANCER Cancer Father , AT AGE 66 HEART ATTACK CAD (coronary artery disease) Myocardial infarction Mother , AT AGE 88 COLON CANCER Cancer Social History Smoking and tobacco status: former smoker Alcohol intake: never Marital status: Current occupational status: retired Physical Exam Const: COMMON NORMALS: no acute distress, average body habitus, patient oriented x3, no limitations, healthy appearing, alert and well nourished HENMT: COMMON NORMALS: normocephalic, atraumatic, hearing grossly normal bilaterally, external ears normal, EAC's normal, TM's normal bilaterally, Normal external nose present and Normal nasal mucous membranes and turbinates present HEAD & SCALP: normocephalic and atraumatic NOSE: Normal external nose present and Normal nasal mucous membranes and turbinates present EXTERNAL EAR: Yes external ears normal EXTERNAL AUDITORY CANAL: EAC's normal TYMPANIC MEMBRANE: TM's normal bilaterally Eye: COMMON NORMALS: Equal, round and reactive pupils present and EOMs intact bilaterally PUPIL: Yes Equal, round and reactive pupils present Neck/C-Spine: COMMON NORMALS: full ROM, supple, no meningeal signs and no JVD Chest: COMMONS NORMALS: normal inspection of the chest and normal palpation of entire chest wall Resp: COMMON NORMALS: normal respiratory effort, No retractions, No use of accessory muscles and clear to auscultation bilaterally AUSCULTATION: clear to auscultation bilaterally Cardio: COMMON NORMALS: no JVD, regular rate, regular rhythm, S1 normal heart sound present, S2 normal heart sound present and Peripheral pulses 2+ throughout RATE: regular rate RHYTHM: regular rhythm HEART SOUNDS: S1 normal heart sound present and S2 normal heart sound present PERIPHERAL PULSES: Peripheral pulses 2+ throughout GI: COMMON NORMALS: Normal to inspection, nondistended, normoactive bowel sounds present, Soft to palpation and non-tender PALPATION: Yes Soft to palpation : COMMON NORMALS: Yes no CVA tenderness BLADDER/KIDNEY EXAM: Yes no CVA tenderness Back/Pelvis: COMMON NORMALS: no CVA tenderness, thoracic and lumbar spine normal to inspection, no thoracic nor lumbar tenderness and thoraco-lumbar ROM normal Extremity: COMMON NORMALS: normal to inspection, full ROM and capillary refill normal Neuro: COMMON NORMALS: patient oriented x3 and moves all extremities SENSORIUM/ORIENTATION: Yes alert MENINGEAL SIGNS: Yes no meningeal signs Course Vital Signs: Vital signs: Vital Signs Temperature 98.9 F 08/02/23 11:30 Pulse Rate 87 08/02/23 18:27 Respiratory Rate 16 08/02/23 18:27 Blood Pressure 140/85 08/02/23 18:27 Pulse Oximetry 95 08/02/23 18:27 Oxygen Delivery Me thod Room Air 08/02/23 11:30 MDM - Psych Medical Decision Making 87-year-old male presents with suicidal ideation he has both a plan and the means to carry out his thoughts of harming himself. We will obtain laboratory evaluation as well as EKG urine drug screen and have him evaluated by geriatric psychiatry for his statements of suicidal ideation. Medical Records I reviewed the patient's medical records. Lab Data I reviewed the patient's lab results. 08/02/23 11:55 08/02/23 11:55 Laboratory Results WBC 12.52 10^3/uL (3.29-11.43) H 08/02/23 11:55 RBC 5.56 10^6/uL (3.85-5.65) 08/02/23 11:55 Hgb 16.30 g/dL (11.27-16.99) 08/02/23 11:55 Hct 48.7 % (37-53) 08/02/23 11:55 MCV 87.6 fl (82-101) 08/02/23 11:55 MCH 29.3 pg (27-33) 08/02/23 11:55 MCHC 33.5 g/dL (30-55) 08/02/23 11:55 RDW 12.7 % (12.1-15.1) 08/02/23 11:55 Plt Count 306 10^3/cmm (157-399) 08/02/23 11:55 MPV 11.2 fL (7.4-10.4) H 08/02/23 11:55 Neut % (Auto) 68.4 % 08/02/23 11:55 Lymph % (Auto) 15.6 % 08/02/23 11:55 [place] % (Auto) 12.1 % 08/02/23 11:55 Eos % (Auto) 1.8 % 08/02/23 11:55 Baso % (Auto) 1.0 % 08/02/23 11:55 Neut # (Auto) 8.56 10^3/uL (1.8-7.7) H 08/02/23 11:55 Lymph # (Auto) 2.0 10^3/uL (0.8-4.8) 08/02/23 11:55 [place] # (Auto) 1.5 10^3/uL (0.2-0.9) H 08/02/23 11:55 Eos # (Auto) 0.2 10^3/uL (0.0-0.8) 08/02/23 11:55 Baso # (Auto) 0.1 10^3/uL (0.0-0.1) 08/02/23 11:55 Nucleated RBC % (auto) 0 % 08/02/23 11:55 Nucleated RBCs # 0.0 /100WBC 08/02/23 11:55 PT 13.00 SECONDS (12.1-14.9) 08/02/23 11:55 INR 0.95 (0.8-1.2) 08/02/23 11:55 Sodium 133 mmol/L (136-145) L 08/02/23 11:55 Potassium 3.6 mmol/L (3.5-5.1) 08/02/23 11:55 Chloride 95 mmol/L (98-107) L 08/02/23 11:55 Carbon Dioxide 26 mmol/L (22-29) 08/02/23 11:55 Anion Gap 15.6 (5-19) 08/02/23 11:55 BUN 21 mg/dL (8-23) 08/02/23 11:55 Creatinine 1.1 mg/dL (0.7-1.2) 08/02/23 11:55 GFR Calculation Not Reportable 08/02/23 11:55 Glucose 231 mg/dL (65-115) H 08/02/23 11:55 Calculated Osmolality 286 mOsm/kg (285-295) 08/02/23 11:55 Calcium 9.8 mg/dL (8.5-10.5) 08/02/23 11:55 Total Bilirubin 0.3 mg/dL (0.15-1.2) 08/02/23 11:55 AST 11 U/L (0-40) 08/02/23 11:55 ALT 9 U/L (0-41) 08/02/23 11:55 Alkaline Phosphatase 73 U/L (40-130) 08/02/23 11:55 Total Protein 6.7 g/dL (6.6-8.7) 08/02/23 11:55 Albumin 3.1 g/dL (3.5-5.2) L 08/02/23 11:55 Globulin 3.6 g/dL (1.3-4.6) 08/02/23 11:55 Vitamin B12 393 pg/mL (232-1245) 08/02/23 11:55 TSH 2.33 uIU/mL (0.27-4.20) 08/02/23 11:55 TSH 2.39 uIU/mL (0.27-4.20) 08/02/23 11:55 Urine Color Yellow (Yellow) 08/02/23 10:13 Urine Appearance Clear (CLEAR) 08/02/23 10:13 Urine pH 6 (5-7) 08/02/23 10:13 Ur Specific [place] 1.010 (1.005-1.030) 08/02/23 10:13 Urine Protein 3+ (Negative) H 08/02/23 10:13 Urine Glucose (UA) 1+ (Normal) H 08/02/23 10:13 Urine Ketones Negative (Negative) 08/02/23 10:13 Urine Blood Neg (Negative) 08/02/23 10:13 Urine Nitrate Negative (Negative) 08/02/23 10:13 Urine Bilirubin Neg (Negative) 08/02/23 10:13 Urine Urobilinogen Norm mg/dL (Negative) 08/02/23 10:13 Ur Leukocyte Esterase Trace (Negative) H 08/02/23 10:13 Urine RBC 0-4 /hpf (0-2) H 08/02/23 10:13 Urine WBC 5-10 /hpf (0-5) H 08/02/23 10:13 Ur Squamous Epith Cells 0-4 /hpf (0-5) H 08/02/23 10:13 Ur Renal Epithelial Cell Rare /hpf 08/02/23 10:13 Amorphous Sediment Not Reportable 08/02/23 10:13 Urine Bacteria None /hpf (NONE) 08/02/23 10:13 Hyaline Casts Rare /lpf 08/02/23 10:13 Urine Mucus None /hpf 08/02/23 10:13 Salicylates < 0.3 mg/dL (3-10) L 08/02/23 11:55 Urine Opiates Screen Negative ng/mL (Negative) 08/02/23 10:13 Acetaminophen < 5.0 ug/mL (10-30) L 08/02/23 11:55 Ur Barbiturates Screen Negative ng/mL (Negative) 08/02/23 10:13 Ur Phencyclidine Scrn Negative ng/mL (Negative) 08/02/23 10:13 Ur Amphetamines Screen Negative ng/mL (Negative) 08/02/23 10:13 U Benzodiazepines Scrn Negative ng/mL (Negative) 08/02/23 10:13 Urine Cocaine Screen Negative ng/mL (Negative) 08/02/23 10:13 U Marijuana (THC) Screen Negative ng/mL (Negative) 08/02/23 10:13 Ethyl Alcohol < 10 mg/dL (0-10) 08/02/23 11:55 Influenza Type A Ag negative (Negative) 08/02/23 15:14 Influenza Type B Ag negative (Negative) 08/02/23 15:14 SARS-CoV-2 Ag (Rapid) Negative (Negative) 08/02/23 15:46 All radiology interpretation(s) finalized by discharge Discharge Plan Discharge Patient Disposition: Xfer Psychiatric Hosp Clinical Impression: Suicidal ideations Condition: Stable Referrals: Ros Bello FNP [Primary Care Provider] - Coding Level of Care Code ED Investor Relations Director for Eduard Jama
[2023-08-02 14:18] LABS: Amphetamines Screen Urine Negative (Negative); Barbiturates Screen Urine Negative (Negative); Benzodiazepines Screen Urine Negative (Negative); Cocaine Screen Urine Negative (Negative); Opiate Screen Urine Negative (Negative); PCP Screen Urine Negative (Negative); THC Screen Urine Negative (Negative)
[2023-08-02 14:25] LABS: Protein Urine 3+ (Negative); Urine Appearance Clear (CLEAR); Urine Color Yellow (Yellow); pH Urine 6 (5-7)
[2023-08-02 14:26] LABS: Add Urine Microscopic? YES; Bilirubin Urine Neg (Negative); Blood Urine Neg (Negative); Glucose Urine UA 1+ (Normal); Ketones Urine Negative (Negative); Leukocyte Esterase Urine Trace (Negative); Nitrate Urine Negative (Negative); Urobilinogen Urine Norm (Negative)
[2023-08-02 14:32] LABS: Add Urine Culture? No; Hyaline Casts Urine RARE /lpf; RBC Urine 0-4 /hpf (0-2); Renal Epithelial Cells Urine RARE /hpf; Squamous Epithelial Cell Urine 0-4 /hpf (0-5)
--- NOTE | 2023-08-02 14:32 | ECG_ITS ---
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 Measurements Intervals [place] Rate: 85 P: 47 ND: 240 QRS: 25 QRSD: 152 T: 8 QT: 396 QTc: 473 Interpretive Statements SINUS RHYTHM WITH FIRST DEGREE AV BLOCK RIGHT BUNDLE BRANCH BLOCK [120+ ms QRS DURATION, UPRIGHT V1, 40+ ms S IN I/aVL/V4/V5/V6] Compared to ECG 04/19/2023 09:48:51 Sinus arrhythmia no longer present Electronically Signed On 08-02-2023 17:16:59 CDT by Sandra Brambila M.D. [id number] f
[2023-08-02 16:06] LABS: Influenza A by IFA negative (Negative); Influenza B by IFA negative (Negative)
[2023-08-02 16:08] LABS: Thyroid Stimulating Hormone 2.33 uIU/mL (0.27-4.20); Vitamin B12 393 pg/mL (232-1245)
--- NOTE | 2023-08-02 16:41 | XR_ITS ---
WS: [id number] EXAMINATION: XR chest 1V portable [id number] REASON FOR EXAM: Pre-admission requirement for Psych COMPARISON: None available. ORDER DATE: 08/02/2023 4:45 PM TECHNIQUE: A single, portable frontal chest x-ray was obtained. X-RAY FINDINGS: The lungs are clear. Pleural spaces are clear. No pleural effusions or pneumothorax. Cardiomediastinal silhouette is unremarkable except for minor atherosclerotic aortic change evidence for pulmonary edema. Soft tissue and osseous structures are unremarkable. Bilateral shoulder prosthetic joints noted IMPRESSION: Unremarkable frontal portable chest x-ray.
[2023-08-02 17:03] LABS: SARS Covid-2 Antigen Negative (Negative)
[2023-08-02 18:27] VITALS: BP 140/85; PULSE 87; RESP 16; O2SAT 95
== END 2023-08-02 20:16 ==
PROVIDERS: Emergency Provider Internal Medicine; PCP Nurse Practitioner Family
DX: R45.851 Suicidal ideations (principal); Z11.52 Encounter for screening for COVID-19; Z87.891 Personal history of nicotine dependence; E11.9 Type 2 diabetes mellitus without complications; I10 Essential (primary) hypertension; Z86.73 Personal history of transient ischemic attack (TIA), and cerebral infarction without residual deficits
CPT/HCPCS: 36415; 71045; 80053; 80306; 80307; 81001; 82607; 84443; 85025; 85610; 87426; 87804; 93005; 99284

== ENCOUNTER 2024-05-01 16:36 | Emergency (ER) | payer MEDICARE, BC, MEDICAID, SELFPAY ==
[2024-05-01] VITALS (7 sets, daily range): BP systolic 104–127; BP diastolic 60–80; PULSE 68–90; RESP 16–26; TEMP 37.4; O2SAT 90–94; BMI 38.5
--- NOTE | 2024-05-01 16:35 | ECG_ITS ---
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 Measurements Intervals [place] Rate: 80 P: 0 [place]: 0 QRS: 77 QRSD: 146 T: 46 QT: 396 QTc: 458 Interpretive Statements ATRIAL FIBRILLATION RIGHT BUNDLE BRANCH BLOCK [120+ ms QRS DURATION, UPRIGHT V1, 40+ ms S IN I/aVL/V4/V5/V6] MODERATE T-WAVE ABNORMALITY, CONSIDER LATERAL ISCHEMIA [-0.1+ mV T-WAVE IN I/aVL/V5/V6] Compared to ECG 08/02/2023 14:26:56 T-wave abnormality now present Possible ischemia now present Sinus rhythm no longer present First degree AV block no longer present Electronically Signed On 05-01-2024 21:59:43 CDT by Constantine Coleman M.D. [id number]
--- NOTE | 2024-05-01 16:42 | XRR_ITS ---
PROCEDURE INFORMATION: Exam: XR Chest Exam date and time: 05/01/2024 4:47 PM Age: 88 years old Clinical indication: Pain; Angina pectoris; Additional info: Chest pain TECHNIQUE: Imaging protocol: Radiologic exam of the chest. Views: 1 view. COMPARISON: CR XR chest 1V portable [id number] 08/02/2023 4:48 PM FINDINGS: Lungs: No focal consolidation. Pleural spaces: No evidence of pneumothorax. No evidence of pleural effusion. Heart/Mediastinum: Cardiomediastinal silhouette is within normal limits. Bones/joints: No evidence of acute osseous abnormality. Right shoulder arthroplasty. Proximal left humeral prosthesis. XR/XR chest 1V portable [id number] IMPRESSION: 1. No acute cardiopulmonary abnormality.
--- NOTE | 2024-05-01 16:42 | CTR_ITS ---
PROCEDURE INFORMATION: Exam: CT Head Without Contrast Exam date and time: 05/01/2024 5:27 PM Age: 88 years old Clinical indication: Altered mental status/memory loss; Additional info: Encephalopathy, altered mental status TECHNIQUE: Imaging protocol: Computed tomography of the head without contrast. Radiation optimization: All CT scans at this facility use at least one of these dose optimization techniques: automated exposure control; mA and/or kV adjustment per patient size (includes targeted exams where dose is matched to clinical indication); or iterative reconstruction. COMPARISON: CT head wo con* [id number] 03/08/2023 8:43 AM RADIATION DOSE METRICS: Total DLP (mGy-cm): 1095 FINDINGS: Brain: Sequela of mild chronic microvascular ischemic changes. Chronic left pontine lacunar infarct. Jones-white differentiation is otherwise maintained. No evidence of intra-axial or extra-axial hemorrhage. No mass effect or midline shift. Basilar cisterns are patent. Cerebral ventricles: No hydrocephalus. Paranasal sinuses: The visualized paranasal sinuses are well aerated. Mastoid air cells: The visualized mastoids and middle ears are clear. Bones: Calvarium is intact. No evidence of acute fracture. Soft tissues: No gross soft tissue abnormality. CT/CT head wo con* [id number] IMPRESSION: 1. No acute intracranial abnormality. If there is clinical concern for acute ischemia beyond the window for neuro intervention, consider correlation with MRI.
[2024-05-01 17:29] LABS: Basophils # 0.1 10^3/uL (0.0-0.1); Basophils % 0.5 %; Eosinophils # 0.2 10^3/uL (0.0-0.8); Eosinophils % 1.1 %; Hematocrit 46.4 % (37-53); Lymphocytes # 2.6 10^3/uL (0.8-4.8); Lymphocytes % 16.3 %; Mean Corpuscular HGB Conc 33.4 g/dL (30-55); Mean Corpuscular Hemoglobin 29.5 pg (27-33); Mean Corpuscular Volume 88.4 fl (82-101); Mean Platelet Volume 11.8 fL (7.4-10.4); Monocytes # 1.9 10^3/uL (0.2-0.9); Neutrophils # 11.02 10^3/uL (1.8-7.7); Neutrophils % 69.6 %; Nucleated Red Blood Cells % 0 %; Platelet Count 279 10^3/cmm (157-399); Red Blood Count 5.25 10^6/uL (3.85-5.65); Red Cell Distribution Width 13.2 % (12.1-15.1); White Blood Count 15.84 10^3/uL (3.29-11.43)
--- NOTE | 2024-05-01 17:43 | ED_ITS ---
HPI - Chest Pain 2 General: Chief Complaint: Chest Pain Stated Complaint: chest pain Time Seen by Provider: 05/01/24 16:38 History of Present Illness: 88-year-old man with a history of beatriz ia and hypertension who presents to the emergency room by ambulance after having complained of some chest pain at the half-way. This a he has been acting a little more confused than usual. He complained of some nausea. Chest pain. Now he says he feels fine and has no complaints. Review of Systems 2 Narrative: Constitutional symptoms: Negative except as documented in HPI. Skin symptoms: Negative except as documented in HPI. Eye symptoms: Negative except as documented in HPI. ENMT symptoms: Negative except as documented in HPI. Respiratory symptoms: Negative except as documented in HPI. Cardiovascular symptoms: Negative except as documented in HPI. Gastrointestinal symptoms: Negative except as documented in HPI. Genitourinary symptoms: Negative except as documented in HPI. Musculoskeletal symptoms: Negative except as documented in HPI. Neurologic symptoms: Negative except as documented in HPI. Psychiatric symptoms: Negative except as documented in HPI. Endocrine symptoms: Negative except as documented in HPI. 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 Skin: Warm, dry. Head: Normocephalic, atraumatic. Neck: Supple, trachea midline. Eye: Extraocular movements are intact. Ears, nose, mouth and throat: mucosa moist. Cardiovascular: Regular, Normal peripheral perfusion. Respiratory: Lungs are clear to auscultation, respirations are non-labored, breath sounds are equal, Symmetrical chest wall expansion. Gastrointestinal: Soft, Nontender, Non distended Musculoskeletal: Normal ROM, no deformity. Neurological: Aler, No focal neurological deficit observed. Psychiatric: Cooperative, appropriate mood & affect. Course 2 Vital Signs: Vital signs: Vital Signs Temperature 99.4 F 05/01/24 16:41 Pulse Rate 68 05/01/24 20:04 Respiratory Rate 26 H 05/01/24 20:04 Blood Pressure 121/60 05/01/24 20:04 Pulse Oximetry 93 05/01/24 20:04 Oxygen Delivery Me thod Nasal Cannula 05/01/24 20:04 Oxygen Flow Rate 3 05/01/24 20:04 MDM - Chest Pain Medical Decision Making Medical decision making: Differential diagnosis including but not limited to and based on the above HPI, review of systems and physical exam: In this patient with altered mental status: Stroke. Hypoglycemia. Metabolic encephalopathy. Infections such as pneumonia, urinary tract infection, Covid-19, Influenza. Electrolyte abnormalities such as hypernatremia. Renal failure / uremia. Hepatic encephalopathy. Hypoxemia. Hypercapnic respiratory failure. Psychosis. Drug or alcohol intoxication. Medication overdose. Also workup for chest pain Orders placed to evaluate differential diagnosis based on the above differential, HPI and physical exam EKG: Time 1635. Rate 80. Atrial fibrillation with controlled rate, No ST-T changes, no ectopy, This was reviewed and interpreted by myself the ER physician at 1638 Repeat EKG: Time 1841. Rate 75. Atrial fibrillation with controlled rate, No ST-T changes, no ectopy, This was reviewed and interpreted by myself the ER physician At 1845. No acute changes. CT head: No acute intracranial process. no intracranial hemorrhage, no evidence of infarct. no evidence of acute fracture.This was reviewed and interpreted by myself the ER physician. Chest x-ray: No acute process. No infiltrate. No pneumothorax. This was reviewed and interpreted by myself the ER physician. Lab Review: Laboratory results were reviewed and interpreted by myself the emergency room physician. Some mild leukocytosis with a white count of 15.8. BUN and creatinine are slightly elevated over his baseline at 31 and 1.4. Serial troponins are negative. Urine has a few white send few bacteria so may be having an early urinary tract infection. I reviewed the patient's medical record. Reexamination: Patient remained stable. No increased work of breathing. No further complaints of chest pain. No focal motor deficits. Assessment and plan: Dehydration UTI Noncardiac chest pain ? Normal saline bolus and IV Rocephin - Discharged home - Discussed plan with patient. Answered any questions. - Evaluation and treatment of this problem were appropriate in the emergency setting. Lab Data 05/01/24 16:48 05/01/24 16:48 Radiology Impressions Chest X-Ray 05/01/24 16:42 IMPRESSION: 1. No acute cardiopulmonary abnormality. Head CT 05/01/24 16:42 IMPRESSION: 1. No acute intracranial abnormality. If there is clinical concern for acute ischemia beyond the window for neuro intervention, consider correlation with MRI. Laboratory Results WBC 15.84 10^3/uL (3.29-11.43) H 05/01/24 16:48 RBC 5.25 10^6/uL (3.85-5.65) 05/01/24 16:48 Hgb 15.50 g/dL (11.27-16.99) 05/01/24 16:48 Hct 46.4 % (37-53) 05/01/24 16:48 MCV 88.4 fl (82-101) 05/01/24 16:48 MCH 29.5 pg (27-33) 05/01/24 16:48 MCHC 33.4 g/dL (30-55) 05/01/24 16:48 RDW 13.2 % (12.1-15.1) 05/01/24 16:48 Plt Count 279 10^3/cmm (157-399) 05/01/24 16:48 MPV 11.8 fL (7.4-10.4) H 05/01/24 16:48 Neut % (Auto) 69.6 % 05/01/24 16:48 Lymph % (Auto) 16.3 % 05/01/24 16:48 [place] % (Auto) 12.0 % 05/01/24 16:48 Eos % (Auto) 1.1 % 05/01/24 16:48 Baso % (Auto) 0.5 % 05/01/24 16:48 Neut # (Auto) 11.02 10^3/uL (1.8-7.7) H 05/01/24 16:48 Lymph # (Auto) 2.6 10^3/uL (0.8-4.8) 05/01/24 16:48 [place] # (Auto) 1.9 10^3/uL (0.2-0.9) H 05/01/24 16:48 Eos # (Auto) 0.2 10^3/uL (0.0-0.8) 05/01/24 16:48 Baso # (Auto) 0.1 10^3/uL (0.0-0.1) 05/01/24 16:48 Nucleated RBC % (auto) 0 % 05/01/24 16:48 Nucleated RBCs # 0.0 /100WBC 05/01/24 16:48 Sodium 136 mmol/L (136-145) 05/01/24 16:48 Potassium 4.3 mmol/L (3.5-5.1) 05/01/24 16:48 Chloride 98 mmol/L (98-107) 05/01/24 16:48 Carbon Dioxide 22 mmol/L (22-29) 05/01/24 16:48 Anion Gap 20.3 (5-19) H 05/01/24 16:48 BUN 31 mg/dL (8-23) H 05/01/24 16:48 Creatinine 1.4 mg/dL (0.7-1.2) H 05/01/24 16:48 GFR Calculation Not Reportable 05/01/24 16:48 Glucose 133 mg/dL (65-115) H 05/01/24 16:48 Calculated Osmolality 290 mOsm/kg (285-295) 05/01/24 16:48 Lactic Acid 1.6 mmol/L (0.5-2.2) 05/01/24 16:48 Calcium 9.6 mg/dL (8.5-10.5) 05/01/24 16:48 Total Bilirubin 0.4 mg/dL (0.15-1.2) 05/01/24 16:48 AST 13 U/L (0-40) 05/01/24 16:48 ALT 10 U/L (0-41) 05/01/24 16:48 Alkaline Phosphatase 115 U/L (40-130) 05/01/24 16:48 Troponin T Baseline 34 ng/L (0-15) H 05/01/24 16:48 Troponin T 120 Minute 36.65 ng/L (0-15) H 05/01/24 16:30 Delta Troponin T 2.65 ABS# (0-10) 05/01/24 16:30 C-Reactive Protein 86.4 mg/L (0.0-4.9) H 05/01/24 16:48 Total Protein 6.5 g/dL (6.6-8.7) L 05/01/24 16:48 Albumin 3.6 g/dL (3.5-5.2) 05/01/24 16:48 Globulin 2.9 g/dL (1.3-4.6) 05/01/24 16:48 Urine Color Yellow (Yellow) 05/01/24 19:26 Urine Appearance Clear (CLEAR) 05/01/24 19:26 Urine pH 5 (5-7) 05/01/24 19:26 Ur Specific [place] 1.020 (1.005-1.030) 05/01/24 19:26 Urine Protein 1+ (Negative) H 05/01/24 19:26 Urine Glucose (UA) Norm (Normal) 05/01/24 19:26 Urine Ketones 1+ (Negative) H 05/01/24 19:26 Urine Blood Neg (Negative) 05/01/24 19:26 Urine Nitrate Negative (Negative) 05/01/24 19:26 Urine Bilirubin 1+ (Negative) H 05/01/24 19:26 Urine Urobilinogen 1 mg/dL (Negative) H 05/01/24 19:26 Ur Leukocyte Esterase Negative (Negative) 05/01/24 19:26 Urine RBC None /hpf (0-2) 05/01/24 19:26 Urine WBC 0-4 /hpf (0-5) H 05/01/24 19:26 Ur Squamous Epith Cells 0-4 /hpf (0-5) H 05/01/24 19:26 Amorphous Sediment 2+ /hpf 05/01/24 19:26 Urine Bacteria 1+ /hpf (NONE) H 05/01/24 19:26 Hyaline Casts 5-10 /lpf H 05/01/24 19:26 All radiology interpretation(s) finalized by discharge Discharge Plan Discharge Patient Disposition: Home Clinical Impression: Dehydration, UTI (urinary tract infection), Non-cardiac chest pain Condition: Stable Prescriptions: New cefdinir 300 mg capsule 300 mg PO BID 5 Days Qty: 10 0RF No Action losartan 100 mg tablet 100 mg PO QAM hydrochlorothiazide 25 mg tablet 25 mg PO QAM clopidogrel 75 mg tablet 75 mg PO QAM cetirizine [24Hour Allergy] 10 mg tablet 10 mg PO QAM aspirin 325 mg Tablet 162.5 mg PO QAM amlodipine 5 mg tablet 5 mg PO QAM hydrocortisone [Procto-Med HC] 2.5 % cream with perineal applicator See Rx Instructions .ROUTE .COMPLEX Rx Instructions: APPLY A SMALL AMOUNT TO AFFECTED AREA THREE TIMES DAILY ketoconazole 2 % cream 1 applic topical DAILY PRN (Reason: unknown) Discharge Orders: Discharge ED (Routine); Ordered 05/01/24 Ordered By: Mar Alejandra Referrals: Ros Bello FNP [Primary Care Provider] - Discharge Diet: Usual diet Discharge Activity: Increase activity as tolerated Patient Instructions: Dehydration (ED) Activity Restrictions/Additional Instructions: Thank you for choosing [facility] for your healthcare needs today. Please realize this is an emergency room and that we are providing you with a medical screening exam and this may not be complete and all inclusive of all the testing and or work up that you may need to determine your ailment or severity of your illness. You have been screened and evaluated and felt safe for discharge. Health conditions do change or evolve sometimes and as such it is important that you follow up with your Primary Doctor to be re checked, 3-5 days is a general good time frame for follow up. You are always welcome to return to the ED for re assessment if your symptoms are worsening or you have new concerns Coding Level of Care Code ED Clinical Documentation Improvement Specialist for Eduard Jama
[2024-05-01 17:49] LABS: Lactic Sepsis W/Reflex 1.6 mmol/L (0.5-2.2)
[2024-05-01 17:51] LABS: Troponin(5th) Baseline 34 ng/L (0-15)
[2024-05-01 17:55] LABS: Alanine Aminotransferase 10 U/L (0-41); Albumin Level 3.6 g/dL (3.5-5.2); Alkaline Phosphatase 115 U/L (40-130); Anion Gap 20.3 (5-19); Aspartate Amino Transferase 13 U/L (0-40); Blood Urea Nitrogen 31 mg/dL (8-23); C Reactive Protein 86.4 mg/L (0.0-4.9); Calcium 9.6 mg/dL (8.5-10.5); Carbon Dioxide 22 mmol/L (22-29); Chloride 98 mmol/L (98-107); Creatinine Clr Calc Pharmacy 45.7144; Globulin 2.9 g/dL (1.3-4.6); Glucose 133 mg/dL (65-115); Osmolality Calculated 290 mOsm/kg (285-295); Potassium 4.3 mmol/L (3.5-5.1); Sodium 136 mmol/L (136-145); Total Bilirubin 0.4 mg/dL (0.15-1.2); Total Protein 6.5 g/dL (6.6-8.7)
[2024-05-01] MEDS: sodium chloride 0.9% 1,000 ML 999 ML IV (18:36)
--- NOTE | 2024-05-01 18:41 | ECG_ITS ---
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 Measurements Intervals Electra Rate: 75 P: 0 OH: 0 QRS: 47 QRSD: 146 T: 31 QT: 397 QTc: 444 Interpretive Statements ATRIAL FIBRILLATION RIGHT BUNDLE BRANCH BLOCK [120+ ms QRS DURATION, UPRIGHT V1, 40+ ms S IN I/aVL/V4/V5/V6] MODERATE T-WAVE ABNORMALITY, CONSIDER LATERAL ISCHEMIA [-0.1+ mV T-WAVE IN I/aVL/V5/V6] Compared to ECG 05/01/2024 16:35:16 No significant changes Electronically Signed On 05-01-2024 22:16:28 CDT by Constantine Coleman M.D. [id number]
[2024-05-01 19:10] LABS: Troponin 5 2HR 36.65 ng/L (0-15)
[2024-05-01 19:20] LABS: Troponin 5 2HR Delta 2.65 ABS# (0-10)
--- NOTE | 2024-05-01 20:07 | PC.NURSE ---
Updated Gabby on patient status.
[2024-05-01 20:17] LABS: Bilirubin Urine 1+ (Negative); Blood Urine Neg (Negative); Glucose Urine UA Norm (Normal); Ketones Urine 1+ (Negative); Leukocyte Esterase Urine Negative (Negative); Nitrate Urine Negative (Negative); Protein Urine 1+ (Negative); Urine Appearance Clear (CLEAR); Urine Color Yellow (Yellow); Urobilinogen Urine 1 mg/dL (Negative); pH Urine 5 (5-7)
[2024-05-01 20:18] LABS: Add Urine Culture? No; Amorphous Sediment Urine 2+ /hpf; Bacteria Urine 1+ /hpf; Squamous Epithelial Cell Urine 0-4 /hpf (0-5); WBC Urine 0-4 /hpf (0-5)
[2024-05-01] MEDS: cefTRIAXone 1,000 MG in water for injection-sterile 2.1 ML 1 MG IM (22:53)
[2024-05-02 01:23] VITALS: BP 129/69; PULSE 67; O2SAT 91
[2024-05-02 06:10] VITALS: BP 140/75; PULSE 64; RESP 16; O2SAT 91
[2024-05-02 09:01] VITALS: BP 140/75; PULSE 64; RESP 16; TEMP 37.4; O2SAT 91
== END 2024-05-02 09:03 | disposition home or self-care (01) ==
PROVIDERS: Emergency Provider Emergency Medicine; PCP Nurse Practitioner Family
DX: R07.89 Other chest pain (principal); N39.0 Urinary tract infection, site not specified; E86.0 Dehydration; Z79.02 Long term (current) use of antithrombotics/antiplatelets; Z79.82 Long term (current) use of aspirin; I48.91 Unspecified atrial fibrillation; E11.9 Type 2 diabetes mellitus without complications; I10 Essential (primary) hypertension; Z86.73 Personal history of transient ischemic attack (TIA), and cerebral infarction without residual deficits; Z87.891 Personal history of nicotine dependence
CPT/HCPCS: 36415; 70450; 71045; 80053; 81001; 83605; 84484; 85025; 86140; 87040; 93005; 96360; 96361; 96372; 99285; J0696; J7030